=== PATIENT | female | born 1960 | race Caucasian/White ===

== ENCOUNTER 2017-10-02 22:11 | Emergency (ER) | payer OTHER ==
[~2017-10-02 22:11] MED LIST: HYDR-3129 PO; KLON2TAB PO; PROV200T11 PO; RITA20TA PO; WELL150T PO
[2017-10-02 22:30] VITALS: BP 161/94; PULSE 102; RESP 18; TEMP 97.8
--- NOTE | 2017-10-02 22:33 | PD ---
HPI Chief Complaint: alcohol abuse Time Seen by Provider: 22:31 Travel History International Travel<30 days: No Contact w/Intl Traveler<30days: No Traveled to known affect area: No History of Present Illness HPI Patient is a 57-year-old female who was sent to the emergency room by [facility] Valente for evaluation. Patient reports that she is an alcoholic, patient reports that she relapsed 1 month ago and began drinking 1/5 of hard alcohol every day. Patient reports that she went to the [facility] for detox, while registering, patient reports that she doesn't remember what happened. As per bystanders, patient fell to the ground and began shaking. Patient denies any incontinence of urine or stool, patient was not post ictal after this event. Patient reports that she thinks that she was "throwing a fit. " Reports that she does have a headache at this time and her neck is bothering her. Denies si/hi. She does want to speak to a psych screener for her alcohol abuse. PFSH Past Medical History ADD: Yes Arthritis: Yes Bipolar Disorder: Yes Anxiety: Yes Depression: Yes Cardiovascular Problems: Yes Diabetes: No Diminished Hearing: No Herniated Disk: Yes Psychiatric: Yes Menopausal: Yes Social History Alcohol Use: Yes Tobacco Use: Yes Substance Use: Yes Allergies-Medications (Allergen,Severity, Reaction): Coded Allergies: No Known Allergies (Unverified Adverse Reaction, Unknown, 10/02/17) Reported Meds & Prescriptions Reported Meds & Active Scripts Active Reported Buspirone (Buspirone HCl) 5 Mg Tab 5 Mg PO BID Wellbutrin SR 12 HR (Bupropion HCl) 100 Mg Tab 100 Mg PO Q12HR Lexapro (Escitalopram Oxalate) 10 Mg Tab 10 Mg PO DAILY Review of Systems General / Constitutional: No: Fever Eyes: No: Visual changes HENT: Positive: Neck Pain, No: Headaches Cardiovascular: No: Chest Pain or Discomfort Respiratory: No: Shortness of Breath Gastrointestinal: No: Abdominal Pain Genitourinary: No: Dysuria Musculoskeletal: No: Pain Skin: No Rash Neurologic: Positive: Headache, No: Weakness Psychiatric: Positive: Depression, Substance Abuse, No: Suicidal Ideations, Homicidal Ideation Endocrine: No: Polydipsia Hematologic/Lymphatic: No: Easy Bruising Physical Exam Narrative GENERAL: mild distress SKIN: Focused skin assessment warm/dry. HEAD: Atraumatic. Normocephalic. EYES: Pupils equal and round. No scleral icterus. No injection or drainage. ENT: No nasal bleeding or discharge. Mucous membranes pink and moist. NECK: Trachea midline. No JVD. left sided paraspinal tenderness CARDIOVASCULAR: Regular rate and rhythm. No murmur appreciated. RESPIRATORY: No accessory muscle use. Clear to auscultation. Breath sounds equal bilaterally. GASTROINTESTINAL: Abdomen soft, non-tender, nondistended. Hepatic and splenic margins not palpable. MUSCULOSKELETAL: No obvious deformities. No clubbing. No cyanosis. No edema. NEUROLOGICAL: Awake and alert. No obvious cranial nerve deficits. Motor grossly within normal limits. Normal speech. PSYCHIATRIC: Appropriate mood and affect; insight and judgment normal. Data Data Last Documented VS Vital Signs Date Time Temp Pulse Resp B/P (MAP) Pulse Ox O2 Delivery O2 Flow Rate FiO2 10/02/17 22:30 97.8 102 18 161/94 (116) Orders Orders Complete Blood Count With Diff (10/02/17 22:31) Comprehensive Metabolic Panel (10/02/17 22:31) Iv Access Insert/Monitor (10/02/17 22:31) Psych Screen (10/02/17 22:31) Sodium Chloride 0.9% Flush (Ns Flush) (10/02/17 22:45) Drug Screen, Random Urine (10/02/17 22:31) Alcohol (Ethanol) (10/02/17 22:31) Salicylates (Aspirin) (10/02/17 22:31) Tylenol (Acetaminophen) (10/02/17 22:31) Ct Brain W/O Iv Contrast(Rout) (10/02/17 22:31) Ct Cerv Spine W/O Contrast (10/02/17 22:31) Sodium Chlor 0.9% 1000 Ml Inj (Ns 1000 M (10/02/17 22:45) Labs Laboratory Tests Test 10/02/17 23:15 White Blood Count 16.1 TH/MM3 Red Blood Count 5.06 MIL/MM3 Hemoglobin 14.8 GM/DL Hematocrit 42.9 % Mean Corpuscular Volume 84.8 FL Mean Corpuscular Hemoglobin 29.3 PG Mean Corpuscular Hemoglobin Concent 34.6 % Red Cell Distribution Width 13.1 % Platelet Count 351 TH/MM3 Mean Platelet Volume 7.5 FL Neutrophils (%) (Auto) 71.6 % Lymphocytes (%) (Auto) 19.7 % Monocytes (%) (Auto) 7.6 % Eosinophils (%) (Auto) 0.3 % Basophils (%) (Auto) 0.8 % Neutrophils # (Auto) 11.5 TH/MM3 Lymphocytes # (Auto) 3.2 TH/MM3 Monocytes # (Auto) 1.2 TH/MM3 Eosinophils # (Auto) 0.0 TH/MM3 Basophils # (Auto) 0.1 TH/MM3 CBC Comment DIFF FINAL Differential Comment Blood Urea Nitrogen 13 MG/DL Creatinine 0.90 MG/DL Random Glucose 111 MG/DL Total Protein 7.7 GM/DL Albumin 3.7 GM/DL Calcium Level 8.1 MG/DL Alkaline Phosphatase 93 U/L Aspartate Amino Transf (AST/SGOT) 91 U/L Alanine Aminotransferase (ALT/SGPT) 98 U/L Total Bilirubin 0.5 MG/DL Sodium Level 140 MEQ/L Potassium Level 3.7 MEQ/L Chloride Level 101 MEQ/L Carbon Dioxide Level 28.5 MEQ/L Anion Gap 11 MEQ/L Estimat Glomerular Filtration Rate 65 ML/MIN Salicylates Level LESS THAN 1.7 MG/DL Urine Opiates Screen NEG Acetaminophen Level LESS THAN 2.0 MCG/ML Urine Barbiturates Screen NEG Urine Amphetamines Screen NEG Urine Benzodiazepines Screen NEG Urine Cocaine Screen NEG Urine Cannabinoids Screen NEG Ethyl Alcohol Level 258 MG/DL MDM Medical Decision Making Medical Screen Exam Complete: Yes Emergency Medical Condition: Yes Medical Record Reviewed: Yes Interpretation(s) Vital Signs Date Time Temp Pulse Resp B/P (MAP) Pulse Ox O2 Delivery O2 Flow Rate FiO2 10/02/17 22:30 97.8 102 18 161/94 (116) Differential Diagnosis Alcohol abuse, seizure, intracranial hemorrhage, cervical spine fx, cervical strain Narrative Course During the course of the patients emergency department visit, the patients history, examination, and differential diagnosis were reviewed with the patient. The patient was placed on a surveillance monitor with oximetry and frequent blood pressure monitoring. The patient had an IV access obtained and blood work sent for analysis. The patient was initially provided IVF The patients laboratory studies were reviewed and remarkable for: Laboratory Tests Test 10/02/17 23:15 White Blood Count 16.1 TH/MM3 (4.0-11.0) Red Blood Count 5.06 MIL/MM3 (4.00-5.30) Hemoglobin 14.8 GM/DL (11.6-15.3) Hematocrit 42.9 % (35.0-46.0) Mean Corpuscular Volume 84.8 FL (80.0-100.0) Mean Corpuscular Hemoglobin 29.3 PG (27.0-34.0) Mean Corpuscular Hemoglobin Concent 34.6 % (32.0-36.0) Red Cell Distribution Width 13.1 % (11.6-17.2) Platelet Count 351 TH/MM3 (150-450) Mean Platelet Volume 7.5 FL (7.0-11.0) Neutrophils (%) (Auto) 71.6 % (16.0-70.0) Lymphocytes (%) (Auto) 19.7 % (9.0-44.0) Monocytes (%) (Auto) 7.6 % (0.0-8.0) Eosinophils (%) (Auto) 0.3 % (0.0-4.0) Basophils (%) (Auto) 0.8 % (0.0-2.0) Neutrophils # (Auto) 11.5 TH/MM3 (1.8-7.7) Lymphocytes # (Auto) 3.2 TH/MM3 (1.0-4.8) Monocytes # (Auto) 1.2 TH/MM3 (0-0.9) Eosinophils # (Auto) 0.0 TH/MM3 (0-0.4) Basophils # (Auto) 0.1 TH/MM3 (0-0.2) CBC Comment DIFF FINAL Differential Comment Blood Urea Nitrogen 13 MG/DL (7-18) Creatinine 0.90 MG/DL (0.50-1.00) Random Glucose 111 MG/DL (74-106) Total Protein 7.7 GM/DL (6.4-8.2) Albumin 3.7 GM/DL (3.4-5.0) Calcium Level 8.1 MG/DL (8.5-10.1) Alkaline Phosphatase 93 U/L (45-117) Aspartate Amino Transf (AST/SGOT) 91 U/L (15-37) Alanine Aminotransferase (ALT/SGPT) 98 U/L (10-53) Total Bilirubin 0.5 MG/DL (0.2-1.0) Sodium Level 140 MEQ/L (136-145) Potassium Level 3.7 MEQ/L (3.5-5.1) Chloride Level 101 MEQ/L (98-107) Carbon Dioxide Level 28.5 MEQ/L (21.0-32.0) Anion Gap 11 MEQ/L (5-15) Estimat Glomerular Filtration Rate 65 ML/MIN (>89) Salicylates Level LESS THAN 1.7 MG/DL Urine Opiates Screen NEG (NEG) Acetaminophen Level LESS THAN 2.0 MCG/ML Urine Barbiturates Screen NEG (NEG) Urine Amphetamines Screen NEG (NEG) Urine Benzodiazepines Screen NEG (NEG) Urine Cocaine Screen NEG (NEG) Urine Cannabinoids Screen NEG (NEG) Ethyl Alcohol Level 258 MG/DL (0-5) Radiology studies were reviewed and remarkable for Last Impressions Head CT 10/02/172230 Signed Impressions: Service Date/Time: Monday, October 02, 2017 23:22 - CONCLUSION: 1. Degraded study by motion. 2. No acute intracranial abnormality. Pérez Sims Jr., MD patient cleared for screening, patient is voluntary Diagnosis Primary Impression: Alcohol intoxication Qualified Codes: F10.920 - Alcohol use, unspecified with intoxication, uncomplicated Additional Impressions: Head injury Qualified Codes: S09.90XA - Unspecified injury of head, initial encounter Cervical sprain Qualified Codes: S13.9XXA - Sprain of joints and ligaments of unspecified parts of neck, initial encounter Referrals: [facility] Patient Instructions: General Instructions Additional Instructions: [facility] Please return to ER as needed Please drink responsibly Lydia Siegel DO Oct 02, 2017 22:33
[2017-10-02] MEDS ORDERED: SODIUM CHLOR 0.9% 1000 ML INJ 1,000 ML IV ONE (22:45)
[2017-10-02] MEDS ORDERED: SODIUM CHLORIDE 0.9% FLUSH 10 ML FLUSH IVF PRN (22:45)
[2017-10-02] MEDS ORDERED: LEXA10TA PO (23:06)
[2017-10-02] MEDS ORDERED: BUPR100CR PO (23:06)
[2017-10-02] MEDS ORDERED: BUSP5TAB PO (23:06)
[2017-10-02 23:27] LABS: AUTOMATED NEUTROPHIL # 11.5 TH/MM3 (1.8-7.7); BASOPHIL # 0.1 TH/MM3 (0-0.2); BASOPHIL % 0.8 % (0.0-2.0); EOSINOPHIL % 0.3 % (0.0-4.0); HEMATOCRIT 42.9 % (35.0-46.0); HEMOGLOBIN 14.8 GM/DL (11.6-15.3); LYMPH % 19.7 % (9.0-44.0); LYMPHOCYTE # 3.2 TH/MM3 (1.0-4.8); MEAN CELL VOLUME 84.8 FL (80.0-100.0); MEAN CORPUSCULAR HEMOGLOBIN 29.3 PG (27.0-34.0); MEAN CORPUSCULAR HGB CONC 34.6 % (32.0-36.0); MEAN PLATELET VOLUME 7.5 FL (7.0-11.0); MONO % 7.6 % (0.0-8.0); MONOCYTE # 1.2 TH/MM3 (0-0.9); NEUT % 71.6 % (16.0-70.0); PLATELET COUNT 351 TH/MM3 (150-450); RED BLOOD COUNT 5.06 MIL/MM3 (4.00-5.30); RED CELL DISTRIBUTION WIDTH 13.1 % (11.6-17.2); WHITE BLOOD COUNT 16.1 TH/MM3 (4.0-11.0)
--- NOTE | 2017-10-02 23:35 | RADRPT ---
EXAM DATE/TIME: 10/02/2017 23:22 [facility] COMPARISON: No previous studies available for comparison. INDICATIONS : Trauma. Fall. ETOH RADIATION DOSE: 31.40 CTDIvol (mGy) MEDICAL HISTORY : Cardiovascular disease. SURGICAL HISTORY : None. ENCOUNTER: Initial ACUITY: 1 day PAIN SCALE: 0/10 LOCATION: cranial TECHNIQUE: Multiple contiguous axial images were obtained of the head. Using automated exposure control and adj ustment of the mA and/or kV according to patient size, radiation dose was kept as low as reasonably a chievable to obtain optimal diagnostic quality images. DICOM format image data is available electro nically for review and comparison. FINDINGS: The study is degraded by motion. CEREBRUM: The ventricles are normal for age. No evidence of midline shift, mass lesion, hemorrhage or acute in farction. No extra-axial fluid collections are seen. POSTERIOR FOSSA: The cerebellum and brainstem are intact. The 4th ventricle is midline. The cerebellopontine angle i s unremarkable. EXTRACRANIAL: The visualized portion of the orbits is intact. SKULL: The calvaria is intact. No evidence of skull fracture. CONCLUSION: 1. Degraded study by motion. 2. No acute intracranial abnormality. Pérez Sims Jr., MD on October 02, 2017 at 23:33 Board Certified Radiologist. This report was verified electronically.
--- NOTE | 2017-10-02 23:47 | RADRPT ---
EXAM DATE/TIME: 10/02/2017 23:22 [facility] COMPARISON: No previous studies available for comparison. INDICATIONS : Trauma. Fall. ETOH RADIATION DOSE: 21.32 CTDIvol (mGy) MEDICAL HISTORY : Cardiovascular disease. SURGICAL HISTORY : None. ENCOUNTER: Initial ACUITY: 1 day PAIN SCALE: 0/10 LOCATION: neck TECHNIQUE: Volumetric scanning of the cervical spine was performed. Multiplanar reconstructions in the sagittal, coronal and oblique axial planes were performed. Using automated exposure control and adjustment o f the mA and/or kV according to patient size, radiation dose was kept as low as reasonably achievable to obtain optimal diagnostic quality images. DICOM format image data is available electronically f or review and comparison. FINDINGS: VERTEBRAE: Normal vertebral body height. A small triangle ossification is seen associated with the right inferio r facet of C4. This is smoothly corticated and felt to relate to an osteophyte. No acute fracture. ALIGNMENT: No evidence of subluxation. C2-C3: The bony spinal canal is normal in size. No evidence of disc bulge or herniation. The neural forami na are bilaterally patent. C3-C4: The bony spinal canal is normal in size. No evidence of disc bulge or herniation. Bony uncovertebral hypertrophy more pronounced on the right. Mild narrowing of the right neural foramen. The left is pa tent. C4-C5: A minimal central bulge. No central canal stenosis. Bony uncovertebral hypertrophy generates mild rig ht neural foraminal narrowing. The left is patent. C5-C6: A broad-based disc osteophyte complex eccentric to the left without central canal stenosis. Prominent bony uncovertebral hypertrophy more pronounced on the left. Narrowing of the left lateral recess and significant narrowing of the left neural foramen. Mild narrowing of the right neural foramen. C6-C7: A broad-based disc osteophyte complex. This in combination with bony uncovertebral hypertrophy genera [place] bilateral lateral recess and neural foraminal narrowing. Central canal remains patent. C7-T1: The bony spinal canal is normal in size. No evidence of disc bulge or herniation. The neural forami na are bilaterally patent. CONCLUSION: 1. No fracture or dislocation. 2. Degenerative changes as detailed above. Pérez Sims Jr., MD on October 02, 2017 at 23:38 Board Certified Radiologist. This report was verified electronically.
[2017-10-02 23:51] LABS: ALKALINE PHOSPHATASE 93 U/L (45-117); TOTAL BILIRUBIN ADULT 0.5 MG/DL (0.2-1.0); TOTAL PROTEIN 7.7 GM/DL (6.4-8.2)
[2017-10-02 23:54] LABS: ACETAMINOPHEN LESS THAN 2.0 MCG/ML (10.0-30.0); ALBUMIN 3.7 GM/DL (3.4-5.0); ALT (GPT) 98 U/L (10-53); AST (GOT) 91 U/L (15-37); BICARBONATE 28.5 MEQ/L (21.0-32.0); BLOOD UREA NITROGEN 13 MG/DL (7-18); CALCIUM 8.1 MG/DL (8.5-10.1); CHLORIDE 101 MEQ/L (98-107); GLOMERULAR FILTRATION RATE 65 ML/MIN (>89); GLUCOSE,RANDOM 111 MG/DL (74-106); SODIUM (NA) 140 MEQ/L (136-145)
[2017-10-03] MEDS ORDERED: chlordiazePOXIDE 25 MG CAP PO PRN (00:45)
--- NOTE | 2017-10-03 00:49 | PD ---
Physical Exam Date Seen by Provider: Oct 03, 2017 Time Seen by Provider: 00:48 Narrative GENERAL: This is a well-nourished, well-developed patient, in no apparent distress. SKIN: No rashes, ecchymoses or lesions. Warm and dry. HEAD: Atraumatic. Normocephalic. EYES: PERRL, EOMI, no discharge or injection. No scleral icterus. EARS: Clear NOSE: Nasal turbinates appear normal. THROAT: Mucosa pink and moist. Airway patent. NECK: Trachea midline. supple, moves head freely. LUNGS: Clear to auscultation. CV: Regular in rhythm. ABDOMEN: Soft nontender. EXT: No clubbing cyanosis or edema. Data Data Last Documented VS Vital Signs Date Time Temp Pulse Resp B/P (MAP) Pulse Ox O2 Delivery O2 Flow Rate FiO2 10/02/17 22:30 97.8 102 18 161/94 (116) Orders Orders Complete Blood Count With Diff (10/02/17 22:31) Comprehensive Metabolic Panel (10/02/17 22:31) Iv Access Insert/Monitor (10/02/17 22:31) Sodium Chloride 0.9% Flush (Ns Flush) (10/02/17 22:45) Drug Screen, Random Urine (10/02/17 22:31) Alcohol (Ethanol) (10/02/17 22:31) Salicylates (Aspirin) (10/02/17 22:31) Tylenol (Acetaminophen) (10/02/17 22:31) Ct Brain W/O Iv Contrast(Rout) (10/02/17 22:31) Ct Cerv Spine W/O Contrast (10/02/17 22:31) Sodium Chlor 0.9% 1000 Ml Inj (Ns 1000 M (10/02/17 22:45) Chlordiazepoxide (Librium) (10/03/17 00:45) Ed Discharge Order (10/03/17 00:47) Labs Laboratory Tests Test 10/02/17 23:15 White Blood Count 16.1 TH/MM3 Red Blood Count 5.06 MIL/MM3 Hemoglobin 14.8 GM/DL Hematocrit 42.9 % Mean Corpuscular Volume 84.8 FL Mean Corpuscular Hemoglobin 29.3 PG Mean Corpuscular Hemoglobin Concent 34.6 % Red Cell Distribution Width 13.1 % Platelet Count 351 TH/MM3 Mean Platelet Volume 7.5 FL Neutrophils (%) (Auto) 71.6 % Lymphocytes (%) (Auto) 19.7 % Monocytes (%) (Auto) 7.6 % Eosinophils (%) (Auto) 0.3 % Basophils (%) (Auto) 0.8 % Neutrophils # (Auto) 11.5 TH/MM3 Lymphocytes # (Auto) 3.2 TH/MM3 Monocytes # (Auto) 1.2 TH/MM3 Eosinophils # (Auto) 0.0 TH/MM3 Basophils # (Auto) 0.1 TH/MM3 CBC Comment DIFF FINAL Differential Comment Blood Urea Nitrogen 13 MG/DL Creatinine 0.90 MG/DL Random Glucose 111 MG/DL Total Protein 7.7 GM/DL Albumin 3.7 GM/DL Calcium Level 8.1 MG/DL Alkaline Phosphatase 93 U/L Aspartate Amino Transf (AST/SGOT) 91 U/L Alanine Aminotransferase (ALT/SGPT) 98 U/L Total Bilirubin 0.5 MG/DL Sodium Level 140 MEQ/L Potassium Level 3.7 MEQ/L Chloride Level 101 MEQ/L Carbon Dioxide Level 28.5 MEQ/L Anion Gap 11 MEQ/L Estimat Glomerular Filtration Rate 65 ML/MIN Salicylates Level LESS THAN 1.7 MG/DL Urine Opiates Screen NEG Acetaminophen Level LESS THAN 2.0 MCG/ML Urine Barbiturates Screen NEG Urine Amphetamines Screen NEG Urine Benzodiazepines Screen NEG Urine Cocaine Screen NEG Urine Cannabinoids Screen NEG Ethyl Alcohol Level 258 MG/DL [facility] Medical Record Reviewed: Yes Supervised Visit with KATIANA: Yes Interpretation(s) Last [address] 10/02/172230 Signed Impressions: Service Date/Time: Monday, October 02, 2017 23:22 - CONCLUSION: 1. Degraded study by motion. 2. No acute intracranial abnormality. Pérez Sims Jr., MD Cervical Spine CT 10/02/172230 Signed Impressions: Service Date/Time: Monday, October 02, 2017 23:22 - CONCLUSION: 1. No fracture or dislocation. 2. Degenerative changes as detailed above. Pérez Sims Jr., MD Laboratory Tests Test 10/02/17 23:15 White Blood Count 16.1 TH/MM3 Red Blood Count 5.06 MIL/MM3 Hemoglobin 14.8 GM/DL Hematocrit 42.9 % Mean Corpuscular Volume 84.8 FL Mean Corpuscular Hemoglobin 29.3 PG Mean Corpuscular Hemoglobin Concent 34.6 % Red Cell Distribution Width 13.1 % Platelet Count 351 TH/MM3 Mean Platelet Volume 7.5 FL Neutrophils (%) (Auto) 71.6 % Lymphocytes (%) (Auto) 19.7 % Monocytes (%) (Auto) 7.6 % Eosinophils (%) (Auto) 0.3 % Basophils (%) (Auto) 0.8 % Neutrophils # (Auto) 11.5 TH/MM3 Lymphocytes # (Auto) 3.2 TH/MM3 Monocytes # (Auto) 1.2 TH/MM3 Eosinophils # (Auto) 0.0 TH/MM3 Basophils # (Auto) 0.1 TH/MM3 CBC Comment DIFF FINAL Differential Comment Blood Urea Nitrogen 13 MG/DL Creatinine 0.90 MG/DL Random Glucose 111 MG/DL Total Protein 7.7 GM/DL Albumin 3.7 GM/DL Calcium Level 8.1 MG/DL Alkaline Phosphatase 93 U/L Aspartate Amino Transf (AST/SGOT) 91 U/L Alanine Aminotransferase (ALT/SGPT) 98 U/L Total Bilirubin 0.5 MG/DL Sodium Level 140 MEQ/L Potassium Level 3.7 MEQ/L Chloride Level 101 MEQ/L Carbon Dioxide Level 28.5 MEQ/L Anion Gap 11 MEQ/L Estimat Glomerular Filtration Rate 65 ML/MIN Salicylates Level LESS THAN 1.7 MG/DL Urine Opiates Screen NEG Acetaminophen Level LESS THAN 2.0 MCG/ML Urine Barbiturates Screen NEG Urine Amphetamines Screen NEG Urine Benzodiazepines Screen NEG Urine Cocaine Screen NEG Urine Cannabinoids Screen NEG Ethyl Alcohol Level 258 MG/DL Differential Diagnosis Differential diagnoses: Alcohol intoxication, substance abuse, electrolyte abnormality, malingering Narrative Course Patient has been medically cleared. Patient at time of discharge states that she is concerned regarding withdrawal. She is given 50 mg of Librium by mouth. Patient's encouraged to maintain a low level of intoxication follow-up with [facility] in the morning. [facility] have been contacted and there is no bed available at this time. They have requested that the patient show up in the morning. They anticipate discharges in the morning. Diagnosis Primary Impression: Alcohol intoxication Qualified Codes: F10.920 - Alcohol use, unspecified with intoxication, uncomplicated Additional Impressions: Cervical sprain Qualified Codes: S13.9XXA - Sprain of joints and ligaments of unspecified parts of neck, initial encounter Head injury Qualified Codes: S09.90XA - Unspecified injury of head, initial encounter Referrals: [facility] Patient Instructions: General Instructions Additional Instruction: Please follow-up with [facility] Please return to ER as needed Please drink responsibly Med/Other Pt SpecificInfo: No Meds Exist/No RX given Disposition: 01 DISCHARGE HOME Condition: Garrett Stanton Oct 03, 2017 00:49
[2017-10-03 01:40] VITALS: BP 142/62; PULSE 85; RESP 18; O2SAT 96
== END 2017-10-03 01:47 | disposition home or self-care (01) ==
LOC: NEPD 22:11
DX: F10.129 Alcohol abuse with intoxication, unspecified (principal); F31.9 Bipolar disorder, unspecified; F41.9 Anxiety disorder, unspecified; S09.90XA Unspecified injury of head, initial encounter; S13.4XXA Sprain of ligaments of cervical spine, initial encounter; W19.XXXA Unspecified fall, initial encounter
CPT/HCPCS: 70450; 72125; 80053; 80307; 85025; 96360; 96361; 99285; J7030